=== PATIENT | male | born 1950 | race Caucasian/White ===

== ENCOUNTER 2017-09-08 12:07 | Outpatient (CLI) | payer MEDICARE, BC ==
[2017-09-08 13:31] LABS: Estimated GFR-MDRD - POC Greater than 90
== END 2017-09-08 12:08 | disposition home or self-care (01) ==
LOC: BICCT 12:07
DX: I71.4 Abdominal aortic aneurysm, without rupture (principal); I70.90 Unspecified atherosclerosis
CPT/HCPCS: 74174; 82565

== ENCOUNTER 2017-10-11 10:22 | Outpatient (CLI) | payer MEDICARE, BC ==
[2017-10-11 11:43] LABS: Anion Gap 15 mmol/L (10-20); BUN (Urea Nitrogen) 6 mg/dL (8.4-25.7); Calc. Creatinine Clearance 0 mL/min (70-130); Calcium 9.5 mg/dL (7.8-10.44); Carbon Dioxide 25 mmol/L (23-31); Chloride 104 mmol/L (98-107); Estimated GFR-MDRD Greater than 90; Glucose 96 mg/dL (80-115); Potassium 4.2 mmol/L (3.5-5.1); Sodium 140 mmol/L (136-145)
[2017-10-11 11:45] LABS: Hemoglobin 16.6 g/dL (14.0-18.0); Mean Corpuscular HGB CONC 34.7 g/dL (32.0-36.0); Mean Corpuscular Hemoglobin 32.6 pg (27.0-31.0); Mean Corpuscular Volume 93.8 fL (78.0-98.0); Mean Platelet Volume 6.6 fL (7.4-10.4); Platelet Count 230 thou/uL (130-400); RBC Distribution Width 12.5 % (11.5-14.5); Red Blood Cell (RBC) Count 5.11 mill/uL (4.70-6.10); White Blood Cell (WBC) Count 8.5 thou/uL (4.8-10.8)
== END 2017-10-11 10:23 | disposition home or self-care (01) ==
LOC: LABBT 10:22
PROVIDERS: ATTEND Thoracic Surgery (Cardiothoracic Vascular Surgery)
DX: Z01.812 Encounter for preprocedural laboratory examination (principal); I71.4 Abdominal aortic aneurysm, without rupture
CPT/HCPCS: 80048; 85027; 86850; 86900; 86901

== ENCOUNTER 2017-10-12 05:57 | Inpatient (IN) | payer MEDICARE, BC ==
--- NOTE | 2017-10-11 11:39 | HP ---
DATE OF SURGERY: 10/12/2017 at [facility]. HISTORY OF PRESENT ILLNESS: This is a 67-year-old gentleman found by Dr. Solitario in [place] to have a greater than 5 cm abdominal aortic aneurysm. This was found during evaluation for abdominal and nguyen k discomfort. PAST MEDICAL HISTORY: Limited to a diagnosis of COPD with no history of hypertension, diabetes melli tus, dyslipidemia or cardiac disease. He has undergone a CT scan showing a 5.5 cm aneurysm with a lo ng neck and heavily calcified right common femoral artery. PAST SURGICAL HISTORY: Includes a neck fusion. SOCIAL HISTORY: He smokes a half to 1 pack of cigarettes a day, drinks socially. 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 ALLERGIES: He has no known allergies. MEDICATIONS: No active medications except for a course of Cipro that he took about 1 month ago. PHYSICAL EXAMINATION: GENERAL: He is an alert, cooperative gentleman, in no distress. VITAL SIGNS: Height 6 foot, weight 188. Blood pressure 150/90, oxygen saturation 95% on room air, h eart rate of 90. NECK: No carotid bruits. CARDIAC: Regular rate and rhythm. No murmurs. LUNGS: Clear to auscultation. ABDOMEN: I am unable to palpate his aneurysm. He has no tenderness. EXTREMITIES: He has no peripheral edema. He has palpable femoral and dorsalis pedis pulses bilatera lly. PLAN: Planning endovascular aneurysm repair tomorrow with probable left common femoral endarterectom y as well. Informed consent has been obtained.
[2017-10-12] MEDS ORDERED: CEFAZOLIN/Water 2 GM/20 ML SYRINGE ONE (06:19)
[2017-10-12] MEDS ORDERED: Heparin 10,000 UNITS/1 ML VIAL ONE ×3 (06:28→08:32)
[2017-10-12] MEDS ORDERED: Protamine Sulfate 50 MG/5 ML VIAL ONE (06:28)
[2017-10-12] MEDS ORDERED: Fentanyl 250 MCG/5 ML VIAL ONE (06:47)
[2017-10-12] MEDS ORDERED: Midazolam HCl 2 mg/2 ml Vial ONE ×2 (06:47→08:01)
[2017-10-12] MEDS ORDERED: Mannitol 12.5 GM/50 ML ONE ×3 (08:01→13:35)
[2017-10-12] MEDS ORDERED: Heparin 5,000 UNITS/ML VIAL ONE ×2 (08:32→13:35)
[2017-10-12] MEDS ORDERED: Albuterol Sulfate HFA (OR ONLY) ONE (09:43)
--- NOTE | 2017-10-12 11:39 | RAD ---
FLUOROSCOPY OVER ONE HOUR: HISTORY: (dictation cut off) POS: [facility]
[2017-10-12] MEDS ORDERED: Fentanyl 100 MCG/2 ML VIAL ONE (12:06)
[2017-10-12] MEDS ORDERED: Ondansetron HCl/PF 4 MG/2 ML Vial IVP PRN ×2 (12:32→16:40)
[2017-10-12] MEDS ORDERED: Promethazine HCl 25 MG/ML VIAL IM PRN (12:32)
[2017-10-12] MEDS ORDERED: Promethazine HCl 25 MG/ML VIAL SLOW IVP PRN (12:32)
[2017-10-12] MEDS ORDERED: Dexamethasone 20 MG/5 ML VIAL ONE (13:35)
[2017-10-12] MEDS ORDERED: Glycopyrrolate 0.2 MG/ML 5 ML SYRINGE ONE (13:35)
[2017-10-12] MEDS ORDERED: Protamine Sulfate 250 MG/25 ML VIAL ONE (13:35)
[2017-10-12] MEDS ORDERED: Vecuronium 10 MG VIAL ONE (13:35)
[2017-10-12] MEDS ORDERED: Heparin 30,000 units/30 ml VIAL ONE (13:35)
[2017-10-12] MEDS ORDERED: PROPOFOL 200 MG/20 ML VIAL ONE (13:35)
[2017-10-12] MEDS ORDERED: PHENYLEPHRINE-NS 100 MCG/ML 10 ML SYRINGE ONE (13:35)
[2017-10-12] MEDS ORDERED: HYDROcodone/Acetaminophen 5/325 mg Tablet PO PRN ×2 (16:40)
[2017-10-12] MEDS ORDERED: Spiriva 18 MCG CAP (Box of 5 Caps) INH PRN (16:40)
[2017-10-12] MEDS ORDERED: Acetaminophen 325 MG TAB PO PRN (16:40)
[2017-10-12] MEDS ORDERED: hydrALAZINE 20 MG/ML VIAL SLOW IVP PRN (16:40)
[2017-10-12] MEDS ORDERED: Phenylephrine 10 MG/NS 250 ML 250 ML IVPB PRN (16:40)
[2017-10-12] MEDS ORDERED: niCARdipine HCl 25 MG in Sodium Chloride 0.9% 250 ML 240 ML IVPB PRN (16:40)
[2017-10-12] MEDS ORDERED: Fentanyl 100 MCG/2 ML VIAL SLOW IVP PRN ×2 (16:40)
--- NOTE | 2017-10-12 17:03 | OP ---
DATE OF PROCEDURE: 10/12/2017 PREOPERATIVE DIAGNOSES: Abdominal aortic aneurysm and peripheral vascular disease. PROCEDURE: Endovascular aneurysm repair with graft using 25 x 13 x 166 main body left, open ap proach and 16 x 13 x 124 percutaneous approach. SURGEON: Flynn Mora M.D. COMPO CONVEYOR OPERATOR: Dr. Figueredo. ESTIMATED BLOOD LOSS: 100 mL. CONTRAST: 70, fluoroscopy 23 minutes and 30 seconds. DESCRIPTION OF PROCEDURE: After adequate anesthesia had been obtained, the patient was prepped and d raped. A left groin incision was made exposing the common femoral artery from just above the inguina l ligament to the bifurcation of the profunda and superficial femoral arteries. Following this, the right groin was punctured with a needle, guidewire and 5 Cymro dilator and sheath, at which time, he natividad was given and then ACT levels monitored and heparin repeated as needed. Following this, needle was used to puncture the left common femoral artery, following which a wire was introduced and then a Paterson catheter was used to guide this through the aneurysm into the aorta. Following completion of this pigtail catheter was advanced through the left side up into the aorta and angiography obtained. Main body was then brought over a stiff wire position below the renal arteries. Repeat angiography done and the main body deployed partially. Following this, cannulation was performed through t he 12-Cymro sheath on the right. After this had been done, the second limb was chosen, 16 x 13 x 12 4 and this was deployed. The main body was then completely deployed removed and a 14-Cymro sheath p laced on the left. Balloons were then used to dilate the entire graft at the top to bottom and compl etion angiography showed a late endoleak probably from lumbar arteries. There was no leak proximally or distally. Following completion of this, the sheath was removed from the left leg. Clamps were a pplied to the external iliac artery and the superficial and profunda femoral artery. Long arteriotom y was performed and a complete endarterectomy was accomplished down into the profunda and cutting the plaque at the superficial femoral artery level. Bovine patch was then used to close this arteriotom y, back flushing and forward flushing and then restoring flow down the profunda and superficial femor al artery. Following this, the ProGlide which had been deployed x2 on the right were then secured an d dilator and wire were removed and pressure held here. After obtaining good hemostasis bilaterally, left groin incision was closed in layers with Vicryl. The patient had good flow in his feet and goo d color in his feet at the conclusion of the procedure and is to be taken to the ICU.
[2017-10-12 17:23] VITALS: BMI 26.1
[2017-10-12] MEDS: Sodium Chloride 0.9% 1,000 ML IV SCH (17:46)
[2017-10-12] MEDS: CEFAZOLIN/Water 2 GM/20 ML SYRINGE SLOW IVP SCH (21:24)
[2017-10-13 04:20] LABS: #Lymphocytes 1.3 thou/uL (1.20-3.40); #Monocytes 1.5 thou/uL (0.11-0.59); #Neutrophils 11.7 thou/uL (1.40-6.50); %Basophils 0.3 % (0.0-1.0); %Eosinophils 0.1 % (0.0-10.0); %Lymphocytes 8.8 % (21.0-51.0); %Monocytes 10.6 % (0.0-10.0); %Neutrophils 80.3 % (42.0-75.0); Hemoglobin 13.7 g/dL (14.0-18.0); Mean Corpuscular HGB CONC 35.1 g/dL (32.0-36.0); Mean Corpuscular Hemoglobin 33.1 pg (27.0-31.0); Mean Corpuscular Volume 94.4 fL (78.0-98.0); Mean Platelet Volume 6.9 fL (7.4-10.4); Platelet Count 181 thou/uL (130-400); RBC Distribution Width 12.6 % (11.5-14.5); Red Blood Cell (RBC) Count 4.14 mill/uL (4.70-6.10); White Blood Cell (WBC) Count 14.5 thou/uL (4.8-10.8)
[2017-10-13 04:36] LABS: Anion Gap 13 mmol/L (10-20); BUN (Urea Nitrogen) 8 mg/dL (8.4-25.7); Calc. Creatinine Clearance 116 mL/min (70-130); Calcium 8.7 mg/dL (7.8-10.44); Carbon Dioxide 23 mmol/L (23-31); Chloride 106 mmol/L (98-107); Estimated GFR-MDRD Greater than 90; Glucose 121 mg/dL (80-115); Potassium 3.8 mmol/L (3.5-5.1); Sodium 138 mmol/L (136-145)
[2017-10-13] MEDS: Sodium Chloride 0.9% 1,000 ML IV SCH (06:08)
[2017-10-13] MEDS: CEFAZOLIN/Water 2 GM/20 ML SYRINGE SLOW IVP SCH (06:08)
[2017-10-13 08:22] VITALS: BP 113/67; TEMP 99.2
[2017-10-13] MEDS ORDERED: Aspirin 325 mg Enteric Coated Tablet PO SCH (09:00)
--- NOTE | 2017-10-13 10:50 | DIS ---
HOSPITAL COURSE: The patient was admitted on 10/12/2017 where he underwent an endovascular aneurysm repair with Endurant II system. Using a main body left of 25 x 13 x 166 and a right limb 16 x 13 x 1 24. Angiography at the conclusion showed a late type 3 endoleak. He also underwent left common femo ral endarterectomy with a bovine patch. Postoperatively, he did well with palpable dorsalis pedis pu lses bilaterally. Right groin incision was actually a puncture and was soft and not bleeding and the left groin appeared to be soft as well. Discharge and followup instructions have been given, and I have asked him to begin taking an aspirin every day and a prescription for Tylenol #3 has been written.
== END 2017-10-13 10:10 | disposition home or self-care (01) | DRG 269 ==
LOC: SURG A 05:57 → CCU 10:58 → IMCU/EMU 16:47
PROVIDERS: ADMIT Thoracic Surgery (Cardiothoracic Vascular Surgery); ATTEND Thoracic Surgery (Cardiothoracic Vascular Surgery)
PROC: 04R00KZ Replacement of Abdominal Aorta with Nonautologous Tissue Substitute, Open Approach (ICD-10-PCS; principal; 2017-10-12)
PROC: 04CL0ZZ Extirpation of Matter from Left Femoral Artery, Open Approach (ICD-10-PCS; 2017-10-12)
PROC: 04UL0KZ Supplement Left Femoral Artery with Nonautologous Tissue Substitute, Open Approach (ICD-10-PCS; 2017-10-12)
PROC: 04QL0ZZ Repair Left Femoral Artery, Open Approach (ICD-10-PCS; 2017-10-12)
PROC: B4101ZZ Fluoroscopy of Abdominal Aorta using Low Osmolar Contrast (ICD-10-PCS; 2017-10-12)
DX: I71.4 Abdominal aortic aneurysm, without rupture (principal); J44.9 Chronic obstructive pulmonary disease, unspecified; F17.210 Nicotine dependence, cigarettes, uncomplicated; I73.9 Peripheral vascular disease, unspecified
CPT/HCPCS: 36415; 36416; 76001; 80048; 85025; 85027; 86850; 86900; 86901; C1726; C1760; C1769; C1894; J1100; J1642; J1644; J2150; J2250; J2704; J2720; J3010

== ENCOUNTER 2018-02-08 10:39 | Outpatient (CLI) | payer MEDICARE, BC ==
[2018-02-08 11:21] LABS: Estimated GFR-MDRD - POC Greater than 90
[2018-02-08] MEDS ORDERED: ISOVUE-370 76%-LOCM 1 ML ONE (11:43)
--- NOTE | 2018-02-08 13:13 | CT ---
ABDOMINAL CT ANGIOGRAM INCLUDING 3D RENDERING: History: 67-year-old male with history of I71.4, abdominal aortic aneurysm. Prior repair. Comparison: 09-08-17 FINDINGS: Visualized lung bases are unremarkable. Liver, pancreas, spleen, adrenal glands, and kidneys are unre markable other than right renal cysts and some renal vascular calcifications. Aortobiiliac endostent graft has been placed since the 09-08-17 study. No evidence for a leak. Residual aneurysm sac approxim ates 5.5 x 5.9 cm. There is noted to be some minimal thickening of the anterior superior bladder wall . This may be related to under distention when compared to the prior 09-08-17 study although other pa ologies for focal bladder wall thickening are considered. There is some multilevel mild to moderate stenotic changes of the right and left external iliac arter ies. IMPRESSION: No evidence for an endoleak. Multiple level mild to moderate stenotic changes of the chest external i liac arteries. Some focal bladder wall thickening of the anterior superior bladder of questionable et iology. This may just be related to under distention. Correlate with any potential clinical findings. Code T POS: DEEPA
== END 2018-02-08 10:40 | disposition home or self-care (01) ==
LOC: BICCT 10:39
PROVIDERS: ATTEND Thoracic Surgery (Cardiothoracic Vascular Surgery)
DX: I71.4 Abdominal aortic aneurysm, without rupture (principal); I70.8 Atherosclerosis of other arteries
CPT/HCPCS: 74174; 82565